=== PATIENT | female | born 1945 | race Caucasian/White ===

== ENCOUNTER → 2016-09-17 | Outpatient (CLI) | payer MEDICARE ==
[2016-02-14 10:30] VITALS: BP 113/41
[~2016-09-17] MED LIST: AMLO5TAB2 PO; ASPI-482 PO; ASPI325T4 PO; ATOR10TA PO; BRIM5DRO2 OP; CALC500T50 PO; FLEC100T PO; FLUO20CA8 PO; GUAR1TAB6 PO; HYDR-2666 PO; HYDR200T5 PO; LATA2.5D2 EACHEYE; LORA10TA3 PO; METO25TA4 PO; METO50TA2 PO; MULT-245 PO; Metoprolol Tartrate PO; PILO5TAB PO; RIVA10TA PO; TIMO10DR5 EACHEYE; TIMO5DRO26 OP; TRAM50TA PO
--- NOTE | 2016-09-18 16:30 | CARD ---
APPROVED REPORT EXAM: Two-dimensional and M-mode echocardiogram with Doppler and color Doppler. Other Information Quality : GoodHR: 70bpm Rhythm : NSR INDICATION Dyspnea Aortic insufficiency, Mitral insufficiency RISK FACTORS Hypertension 2D DIMENSIONS RVDd2.4 (2.9-3.5cm)Left Atrium(2D)4.3 (1.6-4.0cm) IVSd0.9 (0.7-1.1cm)Aortic Root(2D)3.0 (2.0-3.7cm) LVDd4.2 (3.9-5.9cm)LVOT Diameter2.2 (1.8-2.4cm) PWd0.8 (0.7-1.1cm)LVDs2.6 (2.5-4.0cm) FS (%) 37.9 %SV54.7 ml LVEF(%)65.0 (>50%) Aortic Valve AoV Peak Kartik.153.0cm/sLVOT Peak Kartik.111.2cm/s CHRIS (VMAX)2.46de7POM (VTI)2.60cm2 AI P 1/2 Leey189ec Mitral Valve MV E Nwvxxurg71.2cm/sMV DECEL RXNE683cc MV A Uqvszxrk83.6cm/sE/A Ratio1.3 MV A [place]136zn Pulmonary Valve PV Peak Gxjgrtgy300.8cm/s Tricuspid Valve TR P. Zfqnuhkw324fh/sRAP FIDMMCKB6lnWg TR Peak Gr.64jfZkRLMD69kkHq Pulmonary Vein S1 Plnmpvjq22.0cm/sD2 Jjxhipfs58.2cm/s PVa fyfvimgo06xopt LEFT VENTRICLE The left ventricle is normal size. There is normal left ventricular wall thickness. The left ventricu lar systolic function is normal and the ejection fraction is within normal range. The Ejection Fracti on is 65%. There is normal LV segmental wall motion. The left ventricular diastolic function and fill ing is normal for age. RIGHT VENTRICLE The right ventricle is normal size. There is normal right ventricular wall thickness. The right ventr icular systolic function is normal. There is a pacemaker lead in the right ventricle. ATRIA The left atrium size is normal. The right atrium size is normal. The interatrial septum is intact wit h no evidence for an atrial septal defect or patent foramen ovale as noted on 2-D or Doppler imaging. AORTIC VALVE The aortic valve is mildly thickened. Doppler and Color Flow revealed mild aortic regurgitation. Ther e is no significant aortic valvular stenosis. MITRAL VALVE The mitral valve is normal in structure There is no evidence of mitral valve prolapse. There is no mi tral valve stenosis. Doppler and Color Flow revealed trace mitral regurgitation. TRICUSPID VALVE The tricuspid valve is normal in structure Doppler and Color Flow revealed mild tricuspid regurgitati on. There is mild pulmonary hypertension. The PA pressure was estimated at 35 mmHg. There is no tricu spid valve stenosis. GREAT VESSELS The aortic root is normal in size. The ascending aorta is normal in size. The pulmonary artery is nor mal. The IVC is normal in size and collapses >50% with inspiration. PERICARDIAL EFFUSION There is a trace pericardial effusion. Critical Notification Critical Value: No <Conclusion> The left ventricular systolic function is normal and the ejection fraction is within normal range. The Ejection Fraction is 65%. The left atrium size is normal. The right atrium size is normal. Doppler and Color Flow revealed mild aortic regurgitation. The aortic valve is mildly thickened. Doppler and Color Flow revealed trace mitral regurgitation. Doppler and Color Flow revealed mild tricuspid regurgitation. There is mild pulmonary hypertension. The PA pressure was estimated at 35 mmHg. There is a trace pericardial effusion.
== END | disposition home or self-care (01) ==
LOC: ECHO 09:39
PROVIDERS: ATTEND Internal Medicine Cardiovascular Disease
DX: R06.00 Dyspnea, unspecified (principal); I35.1 Nonrheumatic aortic (valve) insufficiency; I34.0 Nonrheumatic mitral (valve) insufficiency
CPT/HCPCS: 93306

== ENCOUNTER → 2019-05-20 | Outpatient (CLI) | payer MEDICARE ==
[2018-06-09 10:34] VITALS: BP 108/39
[~2019-05-20] MED LIST changes: +AMLO5TAB10 PO; -AMLO5TAB2 PO; -ASPI325T4 PO; +ASPI325T8 PO; +ATOR20TA58 PO; -CALC500T50 PO; +CALC500T54 PO; +DORZ10DR7 EACHEYE; +FURO20TA3 PO; -HYDR-2666 PO; +HYDR-2761 PO; -METO50TA2 PO; +METO50TA6 PO; +MULT1TAB52 PO; +OMEG1CAP38 PO; -PILO5TAB PO; +PILO5TAB16 PO; +POTA10TA12 PO
--- NOTE | 2019-05-21 12:49 | SLEEP ---
DATE OF STUDY: 05/20/2019 SLEEP STUDY REFERRING PHYSICIAN: Tori Ibarra APRN The patient is a 73 years old who weighs 208 pounds with a BMI of 36. The patient's [place] score was 11. The patient underwent split night study performed at [facility]. During the night study, the patient spent 452 minutes in bed and slept for 276 minutes with a low sleep efficiency of 61%. The patient's sleep latency was 30 minutes with absent REM sleep. Overall, sleep architecture showed increased stage 1 and stage 2 sleep, reduced slow wave and absent REM sleep. During the initial diagnostic portion of the study, the patient slept for 104 minutes. During that time, there were 16 obstructive apneas, 24 mixed apneas and no central apneas. There were 43 hypopneas. The patient's AHI during the diagnostic portion was 48 per hour. Supine AHI 84 per hour. REM sleep was not observed. Nocturnal oximetry study revealed a mean oxygen saturation of 91% with the lowest of 87%. 30% of time oxygen saturation remained between 80% and 89%. PLM seen at index of 39 per hour and 7 per hour caused EEG arousals. EKG with mean heart rate of 79 beats per minute, no arrhythmias observed. The patient met the criteria for CPAP initiation. She was started at 5 cm water and titrated up to 18 cm water. At the final pressure, the patient slept for 53 minutes. The patient's supine sleep, but no REM sleep. The patient's AHI was reduced to 6 per hour, mostly from mask leak with few central apneas. Oxygen saturation remained above 92%. The patient used small size nasal pillows. IMPRESSION: 1. Severe sleep apnea-hypopnea syndrome at an AHI of 48 per hour with worsening AHI of 84 per hour during supine sleep. 2. Nocturnal hypoxia secondary to combination of hypoventilation and sleep apnea. 3. Moderate periodic limb movements. RECOMMENDATIONS: 1. CPAP at 18 cm water completely eliminated the patient's sleep apnea and should be used on a nightly basis. 2. Follow up in 4-6 weeks to assess compliance with CPAP and to document clinical improvement. 3. Weight loss is strongly advised. 4. Avoid DIRECTOR OF GRADUATE ADMISSIONS depressants. 5. Cautioned regarding driving until symptoms of sleep apnea resolve with the use of CPAP. 6. The PLMS does not need to be treated unless the patient has symptoms of restless legs during the day. MADI SWENSON MD DR: ANTOINE/tara JOB#: [id number] / [id number] TORI Mcclellan APRN
== END | disposition home or self-care (01) ==
LOC: SLPLAB 18:24
PROVIDERS: ATTEND Nurse Practitioner Family
DX: G47.33 Obstructive sleep apnea (adult) (pediatric) (principal); G47.34 Idiopathic sleep related nonobstructive alveolar hypoventilation
CPT/HCPCS: 95810

== ENCOUNTER → 2019-07-17 | Outpatient (CLI) | payer MEDICARE ==
[2018-06-09 10:34] VITALS: BP 108/39
--- NOTE | 2019-07-21 18:24 | KCIC ---
Bilateral digital screening mammograms with 3-D tomosynthesis: Reason for examination: Routine screening. Comparison is made to previous study dated 02/15/2014. Bilateral mammograms in CC and oblique projections were obtained with 2-D imaging and 3-D tomosynthesis imaging on a Siemens Inspiration unit and reviewed on the workstation. Interpretation was made with the benefit of CAD. The skin and nipples show no abnormalities. No abnormal axillary lymph nodes are seen. The breast parenchyma shows scattered fatty and fibroglandular density. (Breast density: Category B.) There is an intramammary lymph node at the upper outer quadrant of the left breast. There are no dominant masses, suspicious calcifications or architectural distortion. Impression: No evidence of malignancy. Recommend routine screening. BI-RAD Category 2: Benign. "Our facility is accredited by the [employer] Mammography Program." This patient's information has been entered into a reminder system for the patient to be notified with the results of her examination and a target date for the next mammogram. Electronically signed by: Marietta Nugent MD (07/21/2019 6:21 PM) [id number]
== END | disposition home or self-care (01) ==
LOC: KCIC MAMMO 13:14
PROVIDERS: ATTEND Nurse Practitioner Family
DX: Z12.31 Encounter for screening mammogram for malignant neoplasm of breast (principal)
CPT/HCPCS: 77063; 77067

== ENCOUNTER 2019-10-28 12:04 | Day surgery (SDC) | payer MEDICARE ==
[~2019-10-28 12:04] MED LIST changes: +APIX5TAB PO; +BENZOCAINE ONE 20% MUCOSAL SPRAY.; +BENZOCAINE ONE 20% MUCOSAL SPRAY. MM; +CALC200T3 PO; +FLUO20CA20 PO; -FLUO20CA8 PO; +IV RINGERS,LACTATED 1000ML 1,000 ML IV SCH; +LIDOCAINE 2% TOPICAL JELLY 30GM TUBE. TP ONE; +LIDOCAINE 2% VISCOUS 15 ML SOLUTION. ONE; +LIDOCAINE 2% VISCOUS 15 ML SOLUTION. SWSW ONE
[2019-10-28] MEDS ORDERED: PROPOFOL 20 ML IV ONE (14:06)
[2019-10-28 15:30] VITALS: BP 131/79
--- NOTE | 2019-10-29 13:37 | CARD ---
MR#: [id number] Date of Study: 10/28/2019 Ordering Physician: EV MOHAN, Referring Physician: EV MOHAN, Tech: Nakia Moya APPROVED REPORT EXAM: Transesophageal echocardiogram with color flow Doppler. INDICATION Atrial Fibrillation Reason For Test : Rule out Intracardiac Thrombus. PROCEDURE After obtaining informed consent, patient underwent transesophageal echo in the PACU. Type of Sedation : General Anesthesia Sedation was administered by Casey Sandoval. Sedation was achieved with Propofol 120 intravenously. Transesophageal probe was inserted and advanced into esophagus by Ev Mohan MD. The HUY was performed without complications. Throughout the procedure, the blood pressure, pulse oximetry, cardiac rhythm, and rate were monitored . The patient tolerated the procedure without adverse effects. Recovery from general anesthesia was une ventful and vital signs were stable. LEFT VENTRICLE The left ventricle is normal size. There is normal left ventricular wall thickness. The left ventricu lar systolic function is normal and the ejection fraction is within normal range. The Ejection Fracti on is 50-55%. There is normal LV segmental wall motion. No left ventricle thrombus noted on this stud y. RIGHT VENTRICLE The right ventricle is normal size. There is normal right ventricular wall thickness. The right ventr icular systolic function is normal. ATRIA The left atrium is borderline dilated. The right atrium size is normal. The interatrial septum is int act with no evidence for an atrial septal defect or patent foramen ovale as noted on 2-D or Doppler i maging. There is no thrombus noted in the left atrial appendage. AORTIC VALVE The aortic valve is thickened but opens well. Doppler and Color Flow revealed mild aortic regurgitati on. There is no significant aortic valvular stenosis. MITRAL VALVE The mitral valve is thickened but opens well. There is no evidence of mitral valve prolapse. There is no mitral valve stenosis. Doppler and Color-flow revealed mild mitral regurgitation. TRICUSPID VALVE The tricuspid valve is normal in structure and function. Doppler and Color Flow revealed trace to mil d tricuspid regurgitation. There is no tricuspid valve stenosis. PULMONIC VALVE The pulmonary valve is normal in structure and function. Doppler and Color Flow revealed no pulmonic valvular regurgitation. GREAT VESSELS The aortic root is normal in size. Critical Notification Critical Value: No <Conclusion> The left ventricle is normal size. The left ventricular systolic function is normal and the ejection fraction is within normal range. The Ejection Fraction is 50-55%. The interatrial septum is intact with no evidence for an atrial septal defect or patent foramen ovale as noted on 2-D or Doppler imaging. There is no thrombus noted in the left atrial appendage. Doppler and Color Flow revealed mild aortic regurgitation. There is no significant aortic valvular stenosis. Doppler and Color-flow revealed mild mitral regurgitation. Doppler and Color Flow revealed trace to mild tricuspid regurgitation. Signed by : Ev Mohan MD Electronically Approved : 10/28/2019 16:39:48
== END 2019-10-28 15:40 | disposition home or self-care (01) ==
LOC: SURG 12:04
PROVIDERS: ATTEND Internal Medicine Cardiovascular Disease
DX: I48.91 Unspecified atrial fibrillation (principal); I08.3 Combined rheumatic disorders of mitral, aortic and tricuspid valves; K21.9 Gastro-esophageal reflux disease without esophagitis; K57.30 Diverticulosis of large intestine without perforation or abscess without bleeding; F41.9 Anxiety disorder, unspecified; F32.9 Major depressive disorder, single episode, unspecified; E66.9 Obesity, unspecified; Z68.35 Body mass index [BMI] 35.0-35.9, adult; Z87.442 Personal history of urinary calculi; Z98.42 Cataract extraction status, left eye; Z98.41 Cataract extraction status, right eye; Z85.828 Personal history of other malignant neoplasm of skin; Z96.1 Presence of intraocular lens
CPT/HCPCS: 93312; 93325; J2704

== ENCOUNTER → 2020-04-12 | Outpatient (CLI) | payer MEDICARE ==
[~2020-04-12] MED LIST changes: -BENZOCAINE ONE 20% MUCOSAL SPRAY.; -BENZOCAINE ONE 20% MUCOSAL SPRAY. MM; -IV RINGERS,LACTATED 1000ML 1,000 ML IV SCH; -LIDOCAINE 2% TOPICAL JELLY 30GM TUBE. TP ONE; -LIDOCAINE 2% VISCOUS 15 ML SOLUTION. ONE; -LIDOCAINE 2% VISCOUS 15 ML SOLUTION. SWSW ONE; +MULT-445 PO; -MULT1TAB52 PO
--- NOTE | 2020-04-13 09:51 | CARD ---
MR#: [id number] Date of Study: 04/12/2020 Ordering Physician: EV LUNA, Referring Physician: EV LUNA, Tech: Nakia Moya APPROVED REPORT EXAM: Two-dimensional and M-mode echocardiogram with Doppler and color Doppler. Other Information Quality : AverageHR: 94bpm Technically limited study due to body habitus. INDICATION Chest Pain Surgery/Intervention ICD/Pacemaker: RISK FACTORS Hyperlipidemia 2D DIMENSIONS RVDd3.2 (2.9-3.5cm)Left Atrium(2D)3.3 (1.6-4.0cm) IVSd1.6 (0.7-1.1cm)Aortic Root(2D)3.0 (2.0-3.7cm) LVDd4.6 (3.9-5.9cm)LVOT Diameter1.8 (1.8-2.4cm) PWd1.1 (0.7-1.1cm)LVDs2.4 (2.5-4.0cm) FS (%) 47.7 %SV78.0 ml LVEF(%)79.1 (>50%) Aortic Valve AoV Peak Kartik.131.3cm/sAoV VTI28.7cm AO Peak GR.6.9mmHgLVOT Peak Kartik.95.8cm/s LVOT VTI 24.04cmAO Mean GR.4mmHg CHRIS (VMAX)1.61fz8PCQ (VTI)2.22cm2 AI P 1/2 [id number] Mitral Valve MV E Imnvgjlz66.2cm/sMV DECEL NVNT997bs MV A Gvgqokis08.1cm/sMV E Mean Gr.1mmHg MV DZB35clP/A Ratio1.4 MVA (PHT)4.21cm2 TDI E/Lateral E'5.8E/Medial E'10.0 Pulmonary Valve PV Peak Littxdhv24.9cm/sPV Peak Grad.3mmHg Tricuspid Valve TR P. Chfybboe862fv/sRAP QTLUGCKF4ldLu TR Peak Gr.86jkLoLCJJ73jrHe Pulmonary Vein S1 Tugdsdkr36.4cm/sD2 Ekorwhxb63.1cm/s LEFT VENTRICLE The left ventricle is normal size. There is mild concentric left ventricular hypertrophy. The left ve ntricular systolic function is normal. The Ejection Fraction is 60-65%. Septal motion consistent with conduction abnormality. RIGHT VENTRICLE The right ventricle is normal size. There is normal right ventricular wall thickness. The right ventr icular systolic function is normal. There is a pacemaker lead in the right ventricle. ATRIA The left atrium size is normal. The right atrium size is normal. The interatrial septum is intact wit h no evidence for an atrial septal defect or patent foramen ovale as noted on 2-D or Doppler imaging. AORTIC VALVE The aortic valve is normal in structure and function. Doppler and Color Flow revealed mild to moderat e aortic regurgitation. There is no significant aortic valvular stenosis. Calculated aortic valve are a is 2.26 cm2 with maximum pressure gradient of 8 mmHg and mean pressure gradient of 5 mmHg. MITRAL VALVE The mitral valve is normal in structure and function. There is no evidence of mitral valve prolapse. There is no mitral valve stenosis. Doppler and Color-flow revealed trace mitral regurgitation. TRICUSPID VALVE The tricuspid valve is normal in structure and function. Doppler and Color Flow revealed mild tricusp id regurgitation with an estimated PAP of 38 mmHg. There is no tricuspid valve stenosis. PULMONIC VALVE The pulmonic valve is not well visualized. Doppler and Color Flow revealed trace pulmonic valvular re gurgitation. GREAT VESSELS The aortic root is normal in size. The IVC is normal in size and collapses >50% with inspiration. PERICARDIAL EFFUSION There is no evidence of significant pericardial effusion. Critical Notification Critical Value: No <Conclusion> The left ventricular systolic function is normal. The Ejection Fraction is 60-65%. There is a pacer/ICD lead in the right atrium and ventricle. Mild to moderate aortic regurgitation. Trace mitral regurgitation. Mild tricuspid regurgitation with an estimated PAP of 38 mmHg. There is no evidence of significant pericardial effusion. Signed by : Dionicio Husain, Electronically Approved : 04/13/2020 09:50:37
== END | disposition home or self-care (01) ==
LOC: ECHO 13:51
PROVIDERS: ATTEND Internal Medicine Cardiovascular Disease
DX: I08.2 Rheumatic disorders of both aortic and tricuspid valves (principal); Z95.0 Presence of cardiac pacemaker
CPT/HCPCS: 93306

== ENCOUNTER → 2020-05-10 | Outpatient (CLI) | payer MEDICARE ==
--- NOTE | 2020-05-12 12:35 | SLEEP ---
DATE OF STUDY: 05/10/2020 SLEEP STUDY REFERRING PHYSICIAN: Tori Ibarra APRN. The patient is a 74-year-old who weighs 184 pounds with a BMI of 32. The patient's [place] score was 10. The patient underwent split night study performed at [facility]. During the night study, the patient spent 411 minutes in bed and slept for 337 minutes with a sleep efficiency of 82%. Sleep latency was 9 minutes with an absent REM sleep. Sleep architecture showed normal stage 1 and stage 2 sleep, increased slow wave and absent REM sleep. During the initial diagnostic portion of the study, the patient slept for 85 minutes. During that time, there were 3 obstructive apneas, 8 mixed apneas, no central apneas and 21 hypopneas. The patient's AHI was 23 per hour with a supine AHI of 26 per hour. No REM sleep was observed. EKG monitoring revealed normal sinus rhythm, average heart rate 73 beats per minute, no sustained arrhythmias observed. PLMS were seen at index of 6 per hour and 2 per hour caused EEG arousals. The patient met the criteria for CPAP initiation. It was started at higher pressure as the patient was unable to tolerate the pressure of less than 15 cm water. At a final pressure of 17 cm of water, the patient slept for 102 minutes. The patient's AHI was reduced to 3 per hour. The patient had supine sleep, but no REM sleep. Oxygen saturation remained above 90%. IMPRESSION: 1. Moderate obstructive sleep apnea at an AHI of 23 per hour. Absence of REM sleep can underestimate the severity of sleep apnea. 2. Nocturnal hypoxia secondary to obstructive sleep apnea, but resolved with CPAP. 3. No clinically significant periodic limb movements. RECOMMENDATIONS: 1. CPAP at 17 cm water completely eliminated the patient's sleep apnea and should be used on a nightly basis. 2. Follow up in 4-6 weeks to assess compliance with CPAP and to document clinical improvement. 3. Weight loss is advised. 4. Avoid PEST CONTROL OPERATOR depressants. 5. Cautioned regarding driving until symptoms of sleep apnea resolve with the use of CPAP. 6. The patient used a medium-sized full face mask. MADI SWENSON MD DR: ANTOINE/tara JOB#: [id number] / [id number]
== END | disposition home or self-care (01) ==
LOC: SLPLAB 19:16
PROVIDERS: ATTEND Nurse Practitioner Family
DX: G47.33 Obstructive sleep apnea (adult) (pediatric) (principal)
CPT/HCPCS: 95810

== ENCOUNTER 2020-09-01 12:06 | Emergency (ER) | payer MEDICARE ==
[~2020-09-01] VITALS: Ht 162.6 cm; Wt 85.0 kg
[~2020-09-01 12:06] MED LIST changes: +AMLO-186 PO; -AMLO5TAB10 PO
--- NOTE | 2020-09-01 12:27 | ED.ADGEN ---
Past Medical History Past Medical History: A-Fib, Arthritis, Glaucoma, High Cholesterol, Hypertension, Other Additional Past Medical Histor: sjogrens DISEASE Past Surgical History: Tonsillectomy Additional Past Surgical Histo: L KNEE REPAIR, R KNEE BLOODCLOT REMOVAL, PACEMAKER Smoking Status: Never Smoker Alcohol Use: None Drug Use: None General Adult EDM: Chief Complaint: MECHANICAL FALL HPI: HPI: Patient is a 74 year old female brought in by EMS after a fall this morning. Patient states she has chronic problems with her knees but her right knee gave out she fell forward onto the linoleum floor, struck her knees her left side and her forehead. This occurred in the morning around sunrise, approximately 5 to 6 hours prior to arrival, patient was unable to get herself off the floor. She denies any loss of consciousness or bleeding. No nausea vomiting, vision changes. Denies any fevers or cough. Says she has baseline tremors but feels like they are getting worse. Patient states she has felt a little "weak and shaky" over the past week. States she has had good p.o. intake. Takes Eliquis but is unsure of why. Review of Systems: Review of Systems: Negative other than HPI Current Medications: Current Medications Medications (Trade) Dose Ordered Sig/Juan J Start Time Stop Time Status Last Admin Dose Admin Fentanyl Citrate (Fentanyl 2ml Vial) 50 mcg 1X ONCE 09/01/20 12:30 09/01/20 12:31 DC 09/01/20 12:48 50 MCG Sodium Chloride 500 ml @ 500 mls/hr 1X ONCE 09/01/20 12:30 09/01/20 13:29 DC 09/01/20 12:49 500 MLS/HR Allergies: Allergies: Allergies Coded Allergies Type Severity Reaction Last Updated Verified pyridoxine Allergy Severe ANAPHYLACTIC 10/28/19 Yes brimonidine Allergy Intermediate Rash 10/28/19 Yes latanoprost Allergy Intermediate Itching 10/28/19 Yes shrimp Allergy Intermediate WATER BLISTERS 10/28/19 Yes Physical Exam: PE: Constitutional: Well developed, well nourished, no acute distress, non-toxic appearance. [] HENT: Normocephalic, left frontal hematoma, bilateral external ears normal, oropharynx moist, no oral exudates, nose normal. [] Eyes: PERRLA, EOMI, conjunctiva normal, no discharge. [] Neck: Normal range of motion, no tenderness, supple, no stridor. [] Cardiovascular:Heart rate regular rhythm, no murmur [] Lungs & Thorax: Bilateral breath sounds clear to auscultation [] Abdomen: Bowel sounds normal, soft, no tenderness, no masses, no pulsatile masses. [] Skin: Warm, dry, no erythema, no rash. [] Bruising to left knee and lower leg, bruising on right knee Back: No tenderness, no CVA tenderness. [] Extremities: No tenderness, no cyanosis, no clubbing, ROM intact, no edema. [] Neurologic: Alert and oriented X 3, normal motor function, normal sensory function, no focal deficits noted. [] Psychologic: Affect normal, judgement normal, mood normal. [] Current Patient Data: Labs: Laboratory Tests Test 09/01/20 12:15 09/01/20 12:47 09/01/20 12:54 White Blood Count 8.7 x10^3/uL (4.0-11.0) Red Blood Count 4.59 x10^6/uL (3.50-5.40) Hemoglobin 13.9 g/dL (12.0-15.5) Hematocrit 41.0 % (36.0-47.0) Mean Corpuscular Volume 90 fL (79-100) Mean Corpuscular Hemoglobin 30 pg (25-35) Mean Corpuscular Hemoglobin Concent 34 g/dL (31-37) Red Cell Distribution Width 13.4 % (11.5-14.5) Platelet Count 189 x10^3/uL (140-400) Neutrophils (%) (Auto) 79 % (31-73) H Lymphocytes (%) (Auto) 13 % (24-48) L Monocytes (%) (Auto) 8 % (0-9) Eosinophils (%) (Auto) 1 % (0-3) Basophils (%) (Auto) 1 % (0-3) Neutrophils # (Auto) 6.8 x10^3/uL (1.8-7.7) Lymphocytes # (Auto) 1.1 x10^3/uL (1.0-4.8) Monocytes # (Auto) 0.7 x10^3/uL (0.0-1.1) Eosinophils # (Auto) 0.1 x10^3/uL (0.0-0.7) Basophils # (Auto) 0.0 x10^3/uL (0.0-0.2) Prothrombin Time 14.8 SEC (11.7-14.0) H Prothrombin Time INR 1.2 (0.8-1.1) H Sodium Level 140 mmol/L (136-145) Potassium Level 3.6 mmol/L (3.5-5.1) Chloride Level 102 mmol/L (98-107) Carbon Dioxide Level 27 mmol/L (21-32) Anion Gap 11 (6-14) Blood Urea Nitrogen 12 mg/dL (7-20) Creatinine 0.7 mg/dL (0.6-1.0) Estimated GFR (Cockcroft-Gault) 82.0 BUN/Creatinine Ratio 17 (6-20) Glucose Level 143 mg/dL (70-99) H Calcium Level 9.6 mg/dL (8.5-10.1) Magnesium Level 1.7 mg/dL (1.8-2.4) L Total Bilirubin 1.1 mg/dL (0.2-1.0) H Aspartate Amino Transferase (AST) 21 U/L (15-37) Alanine Aminotransferase (ALT) 29 U/L (14-59) Alkaline Phosphatase 107 U/L (46-116) Creatine Kinase 127 U/L (26-192) Myoglobin 127 ng/mL (9-82) H Troponin I Quantitative < 0.017 ng/mL (0.000-0.055) NI-Vok-J-Type Natriuretic Peptide 961 pg/mL (0-124) H Total Protein 6.7 g/dL (6.4-8.2) Albumin 3.9 g/dL (3.4-5.0) Albumin/Globulin Ratio 1.4 (1.0-1.7) Urine Collection Type Unknown Urine Color Yellow Urine Clarity Clear Urine pH 6.5 (<5.0-8.0) Urine Specific [place] 1.020 (1.000-1.030) Urine Protein 30 mg/dL (NEG-TRACE) Urine Glucose (UA) Negative mg/dL (NEG) Urine Ketones (Stick) 15 mg/dL (NEG) Urine Blood Small (NEG) Urine Nitrite Negative (NEG) Urine Bilirubin Negative (NEG) Urine Urobilinogen Dipstick 1.0 mg/dL (0.2 mg/dL) Urine Leukocyte Esterase Small (NEG) Urine RBC 6-10 /HPF (0-2) Urine WBC 1-4 /HPF (0-4) Urine Squamous Epithelial Cells Mod /LPF Urine Bacteria Moderate /HPF (0-FEW) Urine Hyaline Casts Moderate /HPF Urine Mucus Mod /LPF Lactic Acid Level 1.6 mmol/L (0.4-2.0) Laboratory Tests 09/01/20 12:15 Laboratory Tests 09/01/20 12:15 Vital Signs: Vital Signs Date Time Temp Pulse Resp B/P (MAP) Pulse Ox O2 Delivery O2 Flow Rate FiO2 09/01/20 12:48 18 96 Room Air 09/01/20 12:07 98.0 69 160/63 (95) 98.0 EKG: EKG: Sinus rhythm with a left bundle branch block, no ST elevation depression, normal axis. [] Heart Score: Risk Factors: Risk Factors: DM, Current or recent (<one month) smoker, HTN, HLP, family history of CAD, obesity. Risk Scores: Score 0 - 3: 2.5% MACE over next 6 weeks - Discharge Home Score 4 - 6: 20.3% MACE over next 6 weeks - Admit for Clinical Observation Score 7 - 10: 72.7% MACE over next 6 weeks - Early Invasive Strategies Radiology/Procedures: Radiology/Procedures: Bilateral knees 2 views each INDICATION: Fall. COMPARISON: 02/12/2016 right knee x-rays FINDINGS: Right knee shows no fracture or dislocation. Chondrocalcinosis in the right knee medial and lateral joint space is seen. There is joint space narrowing most conspicuous in the patellofemoral compartment consistent with degenerative change. Arteriovascular calcifications are noted. Left knee pretibial soft tissues show edema and thickening with radiopaque densities in the anterior pretibial soft tissues that could reflect fat necrosis or other soft tissue calcification. No fracture or dislocation is seen. As with the other knee, patellofemoral compartment degenerative changes are present most indication. Arteriovascular calcifications also noted. IMPRESSION: Degenerative changes in the knees. There is soft tissue thickening in the phil ateral prevertebral soft tissues compatible with contusions. [] CT brain without contrast, CT C-spine without contrast. HISTORY: Fall, abrasions on forehead, patient on blood thinners CT brain CT scan the brain was done without contrast. Sinuses are clear. A skull fracture is not identified. There is no intracranial hemorrhage or subdural hematoma. There is no mass or shift of the midline. Ventricles are normal in size. IMPRESSION: 1. No intracranial hemorrhage or subdural hematoma. 2. No other acute finding. End impression CT cervical spine Axial CT images were obtained through the cervical spine. Sagittal and coronal reconstructed images were reviewed. An acute C-spine fracture is not identified. There is facet arthritis at multiple levels. There is disc space narrowing at multiple levels. There is slight subluxation at C3-4. IMPRESSION: 1. Extensive degenerative changes in the cervical spine. 2. No acute C-spine fracture. Course & Med Decision Making: Course & Med Decision Making Pertinent Labs and Imaging studies reviewed. (See chart for details) [] Dragon Disclaimer: Dragon Disclaimer: This electronic medical record was generated, in whole or in part, using a voice recognition dictation system. Departure Departure Impression: Primary Impression: Fall Additional Impressions: Scalp hematoma Knee contusion Disposition: 01 DC HOME SELF CARE/HOMELESS Condition: STABLE Referrals: CARMEN SANCHEZ APRN (PCP) Patient Instructions: Fall Prevention and Home Safety Problem Qualifiers DALTON RUBI MD Sep 01, 2020 12:27
[2020-09-01] MEDS ORDERED: IV NORMAL SALINE 500ML BAG 500 ML IV ONE (12:30)
[2020-09-01] MEDS ORDERED: fentaNYL PF VIAL 100 MCG/2 ML VIAL IVP ONE (12:30)
[2020-09-01 12:47] LABS: BASO % 1 % (0-3); EOS # 0.1 x10^3/uL (0.0-0.7); EOS % 1 % (0-3); HEMOGLOBIN 13.9 g/dL (12.0-15.5); LYMPH # 1.1 x10^3/uL (1.0-4.8); LYMPH % 13 % (24-48); MEAN CORPUSCULAR HEMOGLOBIN 30 pg (25-35); MEAN CORPUSCULAR HGB CONC 34 g/dL (31-37); MEAN CORPUSCULAR VOLUME 90 fL (79-100); MONO # 0.7 x10^3/uL (0.0-1.1); MONO % 8 % (0-9); NEUT # 6.8 x10^3/uL (1.8-7.7); NEUT % 79 % (31-73); PLATELET COUNT 189 x10^3/uL (140-400); RED BLOOD COUNT 4.59 x10^6/uL (3.50-5.40); RED CELL DISTRIBUTION WIDTH 13.4 % (11.5-14.5); WHITE BLOOD COUNT 8.7 x10^3/uL (4.0-11.0)
[2020-09-01 12:55] LABS: PROTHROMBIN TIME PATIENT 14.8 SEC (11.7-14.0)
[2020-09-01 12:56] LABS: CALCIUM 9.6 mg/dL (8.5-10.1); CREATININE 0.7 mg/dL (0.6-1.0); POTASSIUM 3.6 mmol/L (3.5-5.1)
[2020-09-01 12:56] LABS: BILIRUBIN,URINE NEGATIVE (NEG); CLARITY,URINE CLEAR; COLOR,URINE YELLOW; NITRITE,URINE NEGATIVE (NEG); PH,URINE 6.5 (<5.0-8.0); PROTEIN,URINE 30 mg/dL (NEG-TRACE)
[2020-09-01 13:07] LABS: HYALINE CASTS, URINE MODERATE /HPF
[2020-09-01 13:08] LABS: BACTERIA,URINE MODERATE /HPF (0-FEW)
[2020-09-01 13:08] LABS: ALBUMIN 3.9 g/dL (3.4-5.0); ALBUMIN/GLOBULIN RATIO 1.4 (1.0-1.7); MAGNESIUM 1.7 mg/dL (1.8-2.4); TOTAL BILIRUBIN 1.1 mg/dL (0.2-1.0); TOTAL PROTEIN 6.7 g/dL (6.4-8.2)
--- NOTE | 2020-09-01 13:12 | RAD ---
Bilateral knees 2 views each INDICATION: Fall. COMPARISON: 02/12/2016 right knee x-rays FINDINGS: Right knee shows no fracture or dislocation. Chondrocalcinosis in the right knee medial and lateral j oint space is seen. There is joint space narrowing most conspicuous in the patellofemoral compartment consistent with degenerative change. Arteriovascular calcifications are noted. Left knee pretibial soft tissues show edema and thickening with radiopaque densities in the anterior pretibial soft tissues that could reflect fat necrosis or other soft tissue calcification. No fractur e or dislocation is seen. As with the other knee, patellofemoral compartment degenerative changes are present most indication. Arteriovascular calcifications also noted. IMPRESSION: Degenerative changes in the knees. There is soft tissue thickening in the bilateral prevertebral soft tissues compatible with contusions. Electronically signed by: Ellie Guerrero MD (09/01/2020 1:09 PM) [id number]
--- NOTE | 2020-09-01 13:32 | RAD ---
CT brain without contrast, CT C-spine without contrast. HISTORY: Fall, abrasions on forehead, patient on blood thinners CT brain CT scan the brain was done without contrast. Sinuses are clear. A skull fracture is not identified. T here is no intracranial hemorrhage or subdural hematoma. There is no mass or shift of the midline. Ve ntricles are normal in size. IMPRESSION: 1. No intracranial hemorrhage or subdural hematoma. 2. No other acute finding. End impression CT cervical spine Axial CT images were obtained through the cervical spine. Sagittal and coronal reconstructed images w ere reviewed. An acute C-spine fracture is not identified. There is facet arthritis at multiple level s. There is disc space narrowing at multiple levels. There is slight subluxation at C3-4. IMPRESSION: 1. Extensive degenerative changes in the cervical spine. 2. No acute C-spine fracture. PQRS Compliance Statement: One or more of the following individualized dose reduction techniques were utilized for this examinat ion: 1. Automated exposure control 2. Adjustment of the mA and/or kV according to patient size 3. Use of iterative reconstruction technique Electronically signed by: Branden Caro MD (09/01/2020 1:29 PM) [facility]
[2020-09-01 14:00] VITALS: BP 180/67
== END 2020-09-01 14:59 | disposition home or self-care (01) ==
LOC: ER 12:06
DX: S80.02XA Contusion of left knee, initial encounter (principal); S80.01XA Contusion of right knee, initial encounter; S00.83XA Contusion of other part of head, initial encounter; I48.91 Unspecified atrial fibrillation; E78.00 Pure hypercholesterolemia, unspecified; I10 Essential (primary) hypertension; Z95.0 Presence of cardiac pacemaker; Z91.013 Allergy to seafood; Z88.8 Allergy status to other drugs, medicaments and biological substances; W18.09XA Striking against other object with subsequent fall, initial encounter; Y93.89 Activity, other specified; Y92.89 Other specified places as the place of occurrence of the external cause; Y99.8 Other external cause status
CPT/HCPCS: 36415; 70450; 72125; 73560; 80053; 81001; 82550; 83605; 83735; 83874; 83880; 84484; 85025; 85610; 87086; 93005; 96374; 99285; J3010; J7040

== ENCOUNTER 2021-03-14 07:01 | Outpatient (CLI) | payer MEDICARE ==
[~2021-03-14] VITALS: Ht 162.6 cm; Wt 82.2 kg
[2021-03-14] VITALS (15 sets, daily range): BP systolic 79–143; BP diastolic 44–78
[2021-03-14 07:53] LABS: HEMATOCRIT 46.3 % (36.0-47.0); HEMOGLOBIN 15.9 g/dL (12.0-15.5); RED BLOOD COUNT 5.17 x10^6/uL (3.50-5.40); RED CELL DISTRIBUTION WIDTH 13.7 % (11.5-14.5)
[2021-03-14 08:13] LABS: CALCIUM 9.7 mg/dL (8.5-10.1); CREATININE 0.9 mg/dL (0.6-1.0); GFR 61.2; POTASSIUM 3.5 mmol/L (3.5-5.1)
[2021-03-14 08:14] LABS: PROTHROMBIN TIME PATIENT 13.3 SEC (11.7-14.0)
[2021-03-14] MEDS ORDERED: MIDAZOLAM HCL/PF 2 MG/2 ML VIAL. ONE (08:30)
[2021-03-14] MEDS ORDERED: fentaNYL PF VIAL 100 MCG/2 ML VIAL ONE (08:30)
[2021-03-14] MEDS ORDERED: ceFAZolin SODIUM IV Push 1 GM VIAL. IVP ONE ×2 (08:31→09:15)
[2021-03-14] MEDS ORDERED: LIDOCAINE 2%/EPI 1:100,000 20 ML VIAL. ONE (08:43)
[2021-03-14] MEDS ORDERED: PROAIR RESPICL90 MCG IH (08:45)
[2021-03-14] MEDS ORDERED: OMEG1CAP38 PO (08:45)
[2021-03-14] MEDS ORDERED: LIDOCAINE 1%/EPI 1:100,000 20 ML VIAL. INJ ONE (09:15)
[2021-03-14] MEDS ORDERED: fentaNYL PF VIAL 100 MCG/2 ML VIAL IV ONE (09:15)
[2021-03-14] MEDS ORDERED: MIDAZOLAM HCL/PF 2 MG/2 ML VIAL. IV ONE (09:15)
--- NOTE | 2021-03-14 10:47 | NUR ---
Daughter reports that the patient has had two episodes of chest tightness and heaviness. Notified provider. Will continue to monitor.
[2021-03-14] MEDS ORDERED: METOPROLOL IV PUSH 5 MG/5 ML VIAL. IVP ONE ×2 (11:00→11:01)
[2021-03-14] MEDS ORDERED: METOPROLOL SUCC 24HR ER 50 MG TAB.ER.24H. PO SCH (11:30)
--- NOTE | 2021-03-14 11:43 | NUR ---
Current Blood sjzfjfks=335/48. Patient receiving a fluid bolus.
--- NOTE | 2021-03-14 13:08 | NUR ---
Patient's VS stable, no bleeding at incision site. No pain. PIV removed. Instructions provided on site care, sedation, PPM. Patient and daughter's verbalized understanding. Advised patient to go over medication list w/ daughters to make sure it is accurate. Jennifer, daughter, states she will go over medications w/ patient. Patient taken to car via wheelchair. All belongings taken w/ patient at time of d/c. Daughter driving home.
--- NOTE | 2021-03-14 17:17 | CARD ---
MR#: [id number] Date of Study: 03/14/2021 Ordering Physician: DIPESH DAVIS, Referring Physician: DIPESH DAVIS, Tech: APPROVED REPORT HISTORY The Patient is a 75 year-old female with a history of SSS and atrial fibrillation PROCEDURES MODERATE SEDATION TIME: 40 MINUTES FLUORO TIME: 0.0 MIN DOSE: 0.1 GYCM2 Dual chamber pacemaker generator change. INDICATIONS Battery depletion CONSCIOUS SEDATION AGENTS After appropriate informed consent the left chest was prepped and draped in usual sterile fashion. U nder 1% lidocaine local anesthesia the left infraclavicular area was infiltrated to achieve adequate anesthesia. Next, a 2 inch incision was made over the previous pacemaker site. The device was remov ed and a new Medtronic dual-chamber pacemaker device was attached to the previous leads which were we ll-functioning. The device was placed back in the pocket and the incision was closed in 3 layers. H emostasis was achieved. No acute complications. CONCLUSION 1. Successful dual-chamber pacemaker generator change for battery depletion. (Medtronic). Signed by : Dipesh Davis, Electronically Approved : 03/14/2021 17:16:17
--- NOTE | 2021-03-15 08:19 | PDOC1 ---
History and Physical Visit Information Date of Admission: Late entry for 03/14/2021 History of Present Illness History of Present Illness Mariaelena is a pleasant 75-year-old woman who presents to the [facility] [employer] [facility] [employer] [facility] for a planned generator battery change. The patient has a prior history of paroxysmal atrial fibrillation and a dual-chamber pacemaker. She also has a history of hypertension. She has been on anticoagulation and stopped this prior to the procedure. She denies any other specific cardiovascular issues Cardiac Risk Factors Comments 1. Proximal atrial fibrillation 2. Hypertension Cardiac Risk Factors: Sedentary lifestyle Past Surgical History Past Surgical History: Pacemaker Current Medications Current Medications Current Medications Cefazolin Sodium (Ancef) 1 gm STK-MED ONCE IVP ; Start 03/14/21 at 08:31; Stop 03/14/21 at 08:32; Status DC Cefazolin Sodium (Ancef) 2 gm 1X ONCE IVP Last administered on 03/14/21at 09:15; Start 03/14/21 at 09:15; Stop 03/14/21 at 09:16; Status DC Fentanyl Citrate (Fentanyl 2ml Vial) 100 mcg 1X ONCE IV Last administered on 03/14/21at 09:15; Start 03/14/21 at 09:15; Stop 03/14/21 at 09:16; Status DC Fentanyl Citrate (Fentanyl 2ml Vial) 100 mcg STK-MED ONCE .ROUTE ; Start 03/14/21 at 08:30; Stop 03/14/21 at 08:31; Status DC Lidocaine/ Epinephrine (LIDOCAINE 1%-EPI 1:100,000 Multi-Dose) 20 ml 1X ONCE INJ Last administered on 03/14/21at 09:15; Start 03/14/21 at 09:15; Stop 03/14/21 at 09:16; Status DC Lidocaine/ Epinephrine (LIDOCAINE 2%-EPI 1:100,000 multi-dose) 20 ml STK-MED ONCE .ROUTE ; Start 03/14/21 at 08:43; Stop 03/14/21 at 08:44; Status DC Metoprolol Succinate (Toprol Xl) 50 mg DAILY PO Last administered on 03/14/21at 11:41; Start 03/14/21 at 11:30; Stop 03/14/21 at 13:19; Status DC Metoprolol Tartrate (Lopressor Vial) 5 mg 1X ONCE IVP Last administered on 03/14/21at 11:10; Start 03/14/21 at 11:00; Stop 03/14/21 at 11:06; Status DC Metoprolol Tartrate (Lopressor Vial) 5 mg STK-MED ONCE IVP ; Start 03/14/21 at 11:01; Stop 03/14/21 at 11:01; Status DC Midazolam HCl (Versed) 2 mg 1X ONCE IV Last administered on 03/14/21at 09:15; Start 03/14/21 at 09:15; Stop 03/14/21 at 09:16; Status DC Midazolam HCl (Versed) 2 mg STK-MED ONCE .ROUTE ; Start 03/14/21 at 08:30; Stop 03/14/21 at 08:31; Status DC Allergies Allergies Allergies Coded Allergies Type Severity Reaction Last Updated Verified pyridoxine Allergy Severe ANAPHYLACTIC 10/28/19 Yes brimonidine Allergy Intermediate Rash 10/28/19 Yes latanoprost Allergy Intermediate Itching 10/28/19 Yes shrimp Allergy Intermediate WATER BLISTERS 10/28/19 Yes Social History Comments She lives with her daughter. She denies any alcohol, tobacco or illicit drug use. Family History Comments Noncontributory ROS Review of System Negative for 10 out of 14 systems reviewed unless otherwise mentioned above in HPI Physical Exam Comments The patient appeared well nourished and normally developed. Head exam is unremarkable. No scleral icterus or corneal arcus noted. Neck is without jugular venous distension, thyromegaly, or carotid bruits. Carotid ups trokes are brisk bilaterally. Lungs are clear to auscultation and percussion. Cardiac exam reveals the PMI to be normally sized and situated. Rhythm is regular. First and second heart sounds normal. No murmurs, rubs or gallops. Abdominal exam reveals normal bowel sounds, no masses, no organomegaly and no aortic enlargement. Extremities are nonedematous and both femoral and pedal pulses are normal. Msk: No traumua Neuro: No focal deficits Vitals VITALS Vital Signs Date Time Temp Pulse Resp B/P (MAP) Pulse Ox O2 Delivery O2 Flow Rate FiO2 03/14/21 13:00 80 17 96 03/14/21 11:10 127/52 03/14/21 09:37 Nasal Cannula 2.0 03/14/21 08:21 97.7 97.7 Labs Labs Laboratory Tests Test 03/14/21 07:25 03/14/21 07:43 03/14/21 07:50 SARS-CoV-2 Antigen (Rapid) Negative (NEGATIVE) Glucose (Fingerstick) 154 mg/dL (70-99) White Blood Count 12.0 x10^3/uL (4.0-11.0) Red Blood Count 5.17 x10^6/uL (3.50-5.40) Hemoglobin 15.9 g/dL (12.0-15.5) Hematocrit 46.3 % (36.0-47.0) Mean Corpuscular Volume 90 fL (79-100) Mean Corpuscular Hemoglobin 31 pg (25-35) Mean Corpuscular Hemoglobin Concent 34 g/dL (31-37) Red Cell Distribution Width 13.7 % (11.5-14.5) Platelet Count 268 x10^3/uL (140-400) Prothrombin Time 13.3 SEC (11.7-14.0) Prothromb Time International Ratio 1.0 (0.8-1.1) Sodium Level 142 mmol/L (136-145) Potassium Level 3.5 mmol/L (3.5-5.1) Chloride Level 105 mmol/L (98-107) Carbon Dioxide Level 24 mmol/L (21-32) Anion Gap 13 (6-14) Blood Urea Nitrogen 21 mg/dL (7-20) Creatinine 0.9 mg/dL (0.6-1.0) Estimated GFR (Cockcroft-Gault) 61.2 Glucose Level 160 mg/dL (70-99) Calcium Level 9.7 mg/dL (8.5-10.1) ECG Comments Atrial fibrillation with rapid ventricular response VTE Prophylaxis Ordered VTE Prophylaxis Devices: No VTE Pharmacological Prophylaxi: No Assessment/Plan Assessment/Plan 1. Pacemaker battery depletion, plan for generator change under moderate sedation. Justicifation of Admission Dx: Justifications for Admission: Justification of Admission Dx: N/A DIPESH DAVIS MD Mar 15, 2021 08:19
--- NOTE | 2021-03-15 08:20 | PDOC ---
MODERATE SEDATION ASSESSMENT RISKS/ALTERNATIVES Risks/Alternatives Risks and alternatives of this type of sedation and procedure discussed with: RISK/ALTERNATIVES: Patient H & P ON CHART H & P H & P on chart and reviewed for co-morbid conditions and appropriate labs. H&P ON CHART: Yes STATUS PREG STATUS ASSESSED: N/A MEDS/ALLERGIES REVIEWED Meds/Allergies Reviewed Medications and Allergies including time and route of recently administered narcotics and sedatives. MEDS/ALLERGIES REVIEWED: Yes ASA RATING ASA RATING: II AIRWAY ASSESSMENT Airway Assessment Airway patency, oral function limitations, presence of caps, crowns, dentures, partials, and ability to extend neck assessed. AIRWAY ASSESSMENT: Yes MALLAMPATI SCORE MALLAMPATI SCORE: II PRE-SEDATION ASSESSMENT PRE-SEDATION ASSESSMENT: Yes (Late entry) DIPESH DAVIS MD Mar 15, 2021 08:20
== END 2021-03-14 13:10 | disposition home or self-care (01) ==
LOC: CCL 07:01
PROVIDERS: ATTEND Internal Medicine Cardiovascular Disease
DX: Z45.010 Encounter for checking and testing of cardiac pacemaker pulse generator [battery] (principal); I48.91 Unspecified atrial fibrillation; I49.5 Sick sinus syndrome; E78.00 Pure hypercholesterolemia, unspecified; G47.30 Sleep apnea, unspecified; I10 Essential (primary) hypertension; K21.9 Gastro-esophageal reflux disease without esophagitis; E66.9 Obesity, unspecified; M19.90 Unspecified osteoarthritis, unspecified site; F41.9 Anxiety disorder, unspecified; F32.9 Major depressive disorder, single episode, unspecified; Z85.828 Personal history of other malignant neoplasm of skin; Z87.440 Personal history of urinary (tract) infections; Z79.899 Other long term (current) drug therapy; Z98.890 Other specified postprocedural states; Z88.8 Allergy status to other drugs, medicaments and biological substances
CPT/HCPCS: 33228; 36415; 80048; 82962; 85027; 85610; 87426; 99152; 99153; C1785; J0690; J2250; J3010; J3490; 33213

== ENCOUNTER → 2021-06-13 | Outpatient (CLI) | payer MEDICARE ==
[2021-03-14 13:00] VITALS: BP 96/44
[~2021-06-13] MED LIST changes: -FLUO20CA20 PO; +FLUO20CA22 PO; +PROAIR RESPICL90 MCG IH
--- NOTE | 2021-06-13 14:47 | CARD ---
MR#: [id number] Date of Study: 06/13/2021 Ordering Physician: EV LUNA, Referring Physician: EV LUNA, Tech: Paddy Pinon [facility] APPROVED REPORT EXAM: Two-dimensional and M-mode echocardiogram with Doppler and color Doppler. Other Information Quality : GoodHR: 67bpm Rhythm : NSR INDICATION Dyspnea Atrial Fibrillation Surgery/Intervention Pacemaker: RISK FACTORS Hypertension Obesity Hyperlipidemia 2D DIMENSIONS Left Atrium(2D)4.2 (1.6-4.0cm)IVSd1.6 (0.7-1.1cm) Aortic Root(2D)2.7 (2.0-3.7cm)LVDd3.6 (3.9-5.9cm) LVOT Diameter1.8 (1.8-2.4cm)PWd1.2 (0.7-1.1cm) LVDs2.3 (2.5-4.0cm)FS (%) 37.4 % SV37.2 mlLVEF(%)68.4 (>50%) Aortic Valve AoV Peak Kartik.144.8cm/sAoV VTI33.0cm AO Peak GR.8.4mmHgLVOT Peak Kartik.123.4cm/s AO Mean GR.5mmHgAVA (VMAX)2.18cm2 AI P 1/2 Gthj001kh Mitral Valve MV E Iwbxfviw24.7cm/sMV E Peak Gr.4mmHg MV DECEL [id number] A Lvugwtqp21.9cm/s MV E Mean Gr.1mmHgE/A Ratio1.8 Pulmonary Valve PV Peak Giriwqlk715.6cm/s Tricuspid Valve TR P. Esbusjgr205jq/sTR Peak Gr.38mmHg Pulmonary Vein S1 Blhfwdpi55.2cm/sD2 Dfjamyrd46.0cm/s LEFT VENTRICLE The left ventricle is normal size. Proximal septal thickening is noted. Otherwise, concentric LVH. Th e left ventricular systolic function is normal and the ejection fraction is within normal range. EF 5 5% There is normal LV segmental wall motion. Tissue Doppler imaging reveals abnormal left ventricular diastolic dysfunction. No left ventricle thrombus noted on this study. There is no ventricular septa l defect visualized. There is no left ventricular aneurysm. There is no mass noted in the left ventri pramod. RIGHT VENTRICLE The right ventricle is normal size. There is normal right ventricular wall thickness. The right ventr icular systolic function is normal. Pacemaker lead noted in the RV. ATRIA The left atrium is moderately dilated. The right atrium is borderline dilated. The interatrial septum is intact with no evidence for an atrial septal defect or patent foramen ovale as noted on 2-D or Do ppler imaging. AORTIC VALVE The aortic valve is thickened but opens well. Doppler and Color Flow revealed trace to mild aortic re gurgitation. There is no significant aortic valvular stenosis. There is no aortic valvular vegetation . MITRAL VALVE The mitral valve is normal in structure and function. There is no evidence of mitral valve prolapse. There is no mitral valve stenosis. Doppler and Color-flow revealed trace mitral regurgitation. TRICUSPID VALVE The tricuspid valve is normal in structure and function. Doppler and Color Flow revealed trace to mil d tricuspid regurgitation. The PA pressure was estimated at 43 mmHg. There is no tricuspid valve prol apse or vegetation. There is no tricuspid valve stenosis. PULMONIC VALVE Doppler and Color Flow revealed no pulmonic valvular regurgitation. There is no pulmonic valvular obinna nosis. GREAT VESSELS The aortic root is normal in size. The ascending aorta is normal in size. The IVC is normal in size a nd collapses >50% with inspiration. PERICARDIAL EFFUSION There is no pleural effusion. There is no evidence of significant pericardial effusion. Critical Notification Critical Value: No <Conclusion> Proximal septal thickening is noted. Otherwise, concentric LVH. The left ventricular systolic function is normal and the ejection fraction is within normal range. EF 55% There is normal LV segmental wall motion. Pacemaker lead noted in the RV. Doppler and Color Flow revealed trace to mild aortic regurgitation. Doppler and Color Flow revealed trace to mild tricuspid regurgitation. The PA pressure was estimated at 43 mmHg. Signed by : Brendan Chin, Electronically Approved : 06/13/2021 14:47:22
== END ==
LOC: ECHO 13:30
PROVIDERS: ATTEND Internal Medicine Cardiovascular Disease
DX: I08.2 Rheumatic disorders of both aortic and tricuspid valves (principal); R06.02 Shortness of breath
CPT/HCPCS: 93306